=== PATIENT | female | born 1970 | race Caucasian/White ===

== ENCOUNTER 2019-08-01 06:19 | Day surgery (SDC) | payer BC ==
[2019-08-01] MEDS ORDERED: Lactated Ringers 1,000 ML IV ONE (06:33)
[2019-08-01] MEDS ORDERED: Lactated Ringers 1,000 ML IV SCH (07:00)
[2019-08-01] MEDS ORDERED: DIPRIVAN 200 MG/20 ML IV ONE ×2 (07:58→08:15)
[2019-08-01 08:47] VITALS: O2SAT 98
--- NOTE | 2019-08-01 09:02 | OP ---
SURGERY DATE/TIME: 08/01/2019 0800 PREOPERATIVE DIAGNOSIS: Left upper quadrant pain. POSTOPERATIVE DIAGNOSES: 1) Normal colon. 2) Melanosis coli. PROCEDURE: Diagnostic colonoscopy. SURGEON: Lavell Timmons M.D. ANESTHESIA: MAC by Ion Knapp CRNA. ESTIMATED BLOOD LOSS: None. SPECIMENS: None. DESCRIPTION OF PROCEDURE: After informed written consent was obtained, the patient was taken to the endoscopy suite. She underwent monitored anesthesia and a digital rectal exam showed normal sphincter tone and no internal lesions. The scope was inserted into the rectum and sequentially the entire colonic mucosa was traversed. The level of cecum was reached and verified with direct visualization of ileocecal valve. Upon withdrawal careful mucosal inspection revealed no gross abnormalities. Prep was noted to be good. Prior to withdrawal the rectal area showed some pigment changes in the wall consistent with melanosis coli but no ulceration, masses or lesions, etc. Retroflexion was performed and showed no internal lesions. The scope was removed and the patient was transferred to the recovery room in good condition.
[2019-08-01 09:21] VITALS: BP 120/80; PULSE 82
== END 2019-08-01 09:20 | disposition home or self-care (01) ==
LOC: SDC 06:19
PROVIDERS: ATTEND Family Medicine
DX: R10.12 Left upper quadrant pain (principal); K63.89 Other specified diseases of intestine
CPT/HCPCS: 84703; J2704

== ENCOUNTER 2019-09-18 06:28 | Day surgery (SDC) | payer BC ==
[2019-09-18] MEDS ORDERED: Lactated Ringers 1,000 ML IV ONE (06:48)
[2019-09-18] MEDS ORDERED: Lactated Ringers 1,000 ML IV SCH (07:00)
[2019-09-18] MEDS ORDERED: DIPRIVAN 200 MG/20 ML IV ONE (08:12)
[2019-09-18 08:53] VITALS: O2SAT 99
[2019-09-18 09:03] VITALS: BP 105/71; PULSE 74
--- NOTE | 2019-09-18 09:14 | OP ---
SURGERY DATE/TIME: 09/18/2019 0800 PREOPERATIVE DIAGNOSES: 1) Epigastric abdominal pain. 2) Persistent gastroesophageal reflux disease. POSTOPERATIVE DIAGNOSIS: Normal exam. PROCEDURE: EGD. SURGEON: Lavell Timmons M.D. ANESTHESIA: MAC by Ion Knapp CRNA. ESTIMATED BLOOD LOSS: Minimal. SPECIMENS: Two cold forceps biopsies from the duodenum were sent for celiac evaluation. DESCRIPTION OF PROCEDURE: After informed written consent was obtained, the patient was taken to the endoscopy suite. Bite block inserted and she underwent monitored anesthesia. The endoscope was inserted into the posterior oropharynx and easily passed into the esophagus with normal mucosal appearance down to the level of the gastroesophageal junction. Upon entering the stomach there was normal rugated gastric mucosa free of any lesions or defects. The antrum showed no evidence of significant mucosal changes. The pylorus was traversed. The first and second portions of the duodenum showed no obvious ulcerations or mucosal abnormalities. Two cold forceps biopsies were taken and sent for celiac evaluation. Upon further withdrawal retroflexion showed no abnormality in the upper portion of the stomach. Upon withdrawal again the gastroesophageal junction esophageal mucosa all had normal appearance free of any lesions or defects. The scope was removed and the patient was transferred to the recovery room in good condition.
== END 2019-09-18 09:05 | disposition home or self-care (01) ==
LOC: SDC 06:28
PROVIDERS: ATTEND Family Medicine
DX: R10.13 Epigastric pain (principal); K21.9 Gastro-esophageal reflux disease without esophagitis; E03.9 Hypothyroidism, unspecified; I51.9 Heart disease, unspecified
CPT/HCPCS: 88305; J2704

== ENCOUNTER 2024-09-10 06:07 | Day surgery (SDC) | payer BC ==
[2024-09-10] MEDS: Lactated Ringers 1,000 ML IV SCH (06:20)
[2024-09-10] MEDS: CEFAZOLIN 1 GM/100 ML NACL IVPB 1 GM/100 ML IVPB IV SCH (06:21)
[2024-09-10 06:47] VITALS: RESP 14
[2024-09-10 06:56] LABS: ANION GAP 14.4 MEQ/L (5-15); Calcium 9.2 mg/dL (8.4-10.2); Creatinine 1 0.54 mg/dL (0.52-1.04); EST GLOMERULAR FILTRATION RATE 109.3 ML/MIN; Potassium 4.1 mmol/L (3.5-5.1)
[2024-09-10] MEDS ORDERED: Sodium Chloride 0.9% 1000 ML 1,000 ML ONE (07:47)
[2024-09-10] MEDS ORDERED: SUBLIMAZE 100 MCG/2 ML ONE (07:54)
[2024-09-10] MEDS ORDERED: Versed 2 MG/2 ML Injection ONE (07:54)
[2024-09-10] MEDS ORDERED: propofoL IV ONE (07:54)
[2024-09-10] MEDS ORDERED: Lactated Ringers 1,000 ML IV ONE (08:00)
[2024-09-10] MEDS ORDERED: TORAdol 30 mg Injection ONE (08:42)
[2024-09-10 09:06] VITALS: TEMP 97.2; O2SAT 97
[2024-09-10 09:15] VITALS: BP 124/81; PULSE 70
--- NOTE | 2024-09-11 17:36 | OP ---
SURGERY DATE/TIME: 09/10/2024 [id number] PREOPERATIVE DIAGNOSIS: Thickened endometrium. POSTOPERATIVE DIAGNOSIS: Thickened endometrium with cervical stenosis and atrophic cervix. PROCEDURE: 1) Dilation and curettage. 2) Hysteroscopy, not performed, secondary to atrophic cervix. SURGEON: Adryan Monroe DO MARKET DEVELOPMENT MANAGER: Mayela Williamson. ANESTHESIA: General. ESTIMATED BLOOD LOSS: Minimal. COMPLICATIONS: None. DESCRIPTION OF PROCEDURE AND FINDINGS: The risks, benefits, indications, and alternatives of the procedure were reviewed with the patient prior to the procedure. The patient understood the risks of infection, bleeding, bowel injury, bladder injury, ureteral injury, pelvic infection, thromboembolic disorder associated with the surgery and desires to have the surgery as a possible means to alleviate her current medical condition. At this point, the patient was taken to the operating room, given general sedation, placed in the dorsal lithotomy position, prepped and draped in the usual sterile fashion. A weighted speculum was then placed in the patient's vagina, and the cervix was noted to be significantly atrophic and flushed against the vaginal wall. There was minimal cervical tissue that was noted, and the tenaculum was then used and placed over the tiny remnant of cervical tissue that was significantly flushed against the vaginal wall with minimal cervical tissue that was noted. Dilators were used, attempted to dilate the external cervical os with the minimal dilatation; and during dilatation, there was noted to be brownish fluid discharge. From this point, a curette was then attempted and placed through the cervical os with minimal tissue that was noted. However, hemostasis was obtained, and the instrument did not go through the endocervical canal through which the endometrial lining. Again, the cervical tissue was significantly atrophic and flushed with minimal cervical tissue that was flushed against the vaginal wall. There was, however, minimal tissue that was retrieved. From this point, all instruments were removed from the patient's vaginal region. The patient was then taken out of the dorsal lithotomy position, was taken out of anesthesia, and the patient was then taken to the recovery room in stable condition.
== END 2024-09-10 09:21 | disposition home or self-care (01) ==
LOC: SDC 06:07
PROVIDERS: ATTEND Obstetrics & Gynecology
DX: R93.89 Abnormal findings on diagnostic imaging of other specified body structures (principal); N88.2 Stricture and stenosis of cervix uteri; N88.8 Other specified noninflammatory disorders of cervix uteri
CPT/HCPCS: 36415; 58120; 80048; 93005; J0690; J1885; J2250; J2704; J3010